=== PATIENT | female | born 1955 | race Caucasian/White ===

== ENCOUNTER 2018-09-23 19:55 | Emergency (ER) | payer OTHER ==
[~2018-09-23] VITALS: Ht 172.7 cm; Wt 65.5 kg
[2018-09-23] MEDS ORDERED: AUGMENTIN 875 MG TAB PO ONE (20:30)
[2018-09-23] MEDS ORDERED: AUGM875T28 PO (21:20)
[2018-09-23 21:22] VITALS: BP 120/61
== END 2018-09-23 21:24 | disposition home or self-care (01) ==
LOC: M ED 19:55
DX: S61.432A Puncture wound without foreign body of left hand, initial encounter (principal); W55.01XA Bitten by cat, initial encounter; Y92.018 Other place in single-family (private) house as the place of occurrence of the external cause; Z88.8 Allergy status to other drugs, medicaments and biological substances